=== PATIENT | male | born 1985 | race Caucasian/White ===

== ENCOUNTER 2017-09-30 00:42 | Emergency (ER) | payer SELFPAY ==
[~2017-09-30] VITALS: Ht 175.3 cm; Wt 163.0 kg
[2017-09-30 00:50] VITALS: BP 154/87
== END 2017-09-30 03:18 | disposition left against medical advice (07) ==
LOC: ER 00:42
DX: R10.9 Unspecified abdominal pain (principal); Z53.21 Procedure and treatment not carried out due to patient leaving prior to being seen by health care provider